=== PATIENT | female | born 1995 | race Caucasian/White ===

== ENCOUNTER 2022-05-03 11:21 | Emergency (ER) | payer OTHER ==
[~2022-05-03] VITALS: Ht 160 cm; Wt 145.5 kg
[2022-05-03 11:30] VITALS: TEMP 98.3
[2022-05-03] MEDS ORDERED: NAPROSYN500 MG PO (12:11)
[2022-05-03] MEDS ORDERED: ROBAXIN 50500 MG/TAB PO (12:11)
[2022-05-03 12:31] VITALS: BP 132/88; PULSE 96
== END 2022-05-03 12:31 | disposition home or self-care (01) ==
LOC: COL.ER 11:21
DX: R10.33 Periumbilical pain (principal); Z88.6 Allergy status to analgesic agent; X50.0XXA Overexertion from strenuous movement or load, initial encounter